=== PATIENT | male | born 1970 | race Caucasian/White ===

== ENCOUNTER 2022-03-13 16:50 | Outpatient (CLI) | payer OTHER, SELFPAY ==
[2022-03-13 15:15] LABS: Creatinine Urine 82.6 mg/dL
[2022-03-13 15:19] LABS: Microalbumin Creatinine Ratio 10 mg/g (0-30); Microalbumin Urine 1 mg/dL
[2022-03-13 22:40] LABS: Iron* 49 ug/dL (49-181)
[2022-03-13 22:42] LABS: Albumin* 3.1 g/dL (3.3-5.0)
[2022-03-13 22:43] LABS: Chloride* 109 mmol/L (96-114); Potassium* 3.9 mmol/L (3.6-5.1); Sodium* 141 mmol/L (135-149)
[2022-03-13 22:45] LABS: Carbon Dioxide* 25 mmol/L (20-32); Cholesterol* 93 mg/dL (90-199); Creatinine* 0.9 mg/dL (0.5-1.5); Estimated Glomerular Filt Rate 102 ml/min
[2022-03-13 22:46] LABS: Alanine Aminotransferase* 22 U/L (4-50); Alkaline Phosphatase* 88 U/L (40-150); Aspartate Amino Transferase* 50 U/L (12-35); Blood Urea Nitrogen* 8 mg/dL (7-30); Calcium* 8.6 mg/dL (8.4-10.6); Glucose* 110 mg/dL (60-115); HDL Cholesterol* 35 mg/dL (>=40); LDL Cholesterol Calculated 48 mg/dL (<100); Triglycerides* 52 mg/dL (40-149)
[2022-03-13 23:29] LABS: Vitamin B12* 881 pg/mL (243-894)
== END 2022-03-13 16:51 | disposition home or self-care (01) ==
PROVIDERS: PCP Physician Assistant Medical; Visit Provider Physician Assistant Medical
DX: Z00.00 Encounter for general adult medical examination without abnormal findings (principal); D64.9 Anemia, unspecified; E11.9 Type 2 diabetes mellitus without complications; K76.9 Liver disease, unspecified; R19.7 Diarrhea, unspecified; E78.5 Hyperlipidemia, unspecified
CPT/HCPCS: 80053; 80061; 82043; 82570; 82607; 83540; 84443

== ENCOUNTER 2022-03-15 12:23 | Outpatient (CLI) | payer OTHER, SELFPAY ==
[2022-03-15 22:19] LABS: Iron* 76 ug/dL (49-181)
[2022-03-15 22:28] LABS: Percent Iron Saturation 16 % (20-50); Total Iron Binding Capacity 484 ug/dL (261-462)
[2022-03-15 22:29] LABS: NT Pro B Type NatriureticPept* 270 PG/mL (0-125)
[2022-03-15 22:51] LABS: PSA Screen* 0.64 ng/mL (0.10-4.00)
[2022-03-15 22:58] LABS: HIV 1/2/P24 Combo Screen* Negative (Negative)
[2022-03-15 23:06] LABS: Hepatitis C Virus Antibody* Negative (Negative)
[2022-03-18 09:00] LABS: Folate, Serum 15.9 ng/mL (>=5.9)
== END 2022-03-15 12:24 | disposition home or self-care (01) ==
PROVIDERS: PCP Physician Assistant Medical; Visit Provider Physician Assistant Medical
DX: Z00.00 Encounter for general adult medical examination without abnormal findings; R06.00 Dyspnea, unspecified; D64.9 Anemia, unspecified; I11.0 Hypertensive heart disease with heart failure; Z12.5 Encounter for screening for malignant neoplasm of prostate
CPT/HCPCS: 82746; 83516; 83540; 83550; 83880; 84153; 86703; 86803

== ENCOUNTER 2022-03-17 13:33 | Outpatient (CLI) | payer OTHER, SELFPAY ==
--- NOTE | 2022-03-17 14:00 | CRLHL7_ITS ---
For Patients: As a result of the Century Cures Act, medical imaging exams and procedure reports are released immediately into your electronic medical record. You may view this report before your referring provider. If you have questions, please contact your health care provider. CLINICAL HISTORY: Cirrhosis status post TIPS creation. Now with ascites. TECHNIQUE: Grayscale ultrasound examination of the abdomen and retroperitoneum with 2D and spectral analysis and color Doppler interrogation of the hepatic vessels. COMPARISON: 12/17/2020, 10/05/2020 FINDINGS: Cirrhotic liver morphology. No focal hepatic mass is seen. There is no significant biliary dilatation, and the common bile duct measures 6 mm. Gallbladder contains small stones. A TIPS stent is present within the right lobe. Peak systolic velocities are as follows: main portal vein: 19 cm/s; portal end of TIPS: 32 cm/s; mid TIPS: 42 cm/s; hepatic end of TIPS: 124 cm/s. The hepatic veins and IVC are patent. The hepatic artery is patent with normal waveform. The kidneys are normal in size and echotexture. The right kidney measures 11.6 x 6.9 x 6.6 cm and the left kidney measures 12.9 x 3.9 x 6.4 cm. There is no evidence of hydronephrosis, mass or renal calculi bilaterally. The spleen is enlarged measuring 22 cm. Abdominal aorta is normal in caliber. No significant ascites is present. IMPRESSION: 1. Patent TIPS. Velocity shift between the midportion and hepatic end of TIPS suggestive of a hemodynamically significant stenosis. Diminished velocities within the main portal vein also suggestive of TIPS dysfunction. 2. Cirrhotic liver. 3. No significant ascites is present. Dictated by Forrest Kimball MD @ 03/18/2022 11:30:40 AM (Electronically Signed)
== END 2022-03-17 13:34 | disposition home or self-care (01) ==
LOC: US 13:34
PROVIDERS: PCP Physician Assistant Medical; Visit Provider Physician Assistant Medical
DX: K74.60 Unspecified cirrhosis of liver (principal)
CPT/HCPCS: 76700; 93975

== ENCOUNTER 2022-03-24 12:32 | Outpatient (CLI) | payer OTHER, SELFPAY | END 2022-03-24 12:33 | disposition home or self-care (01) | LOC: RAD 12:33 | PROVIDERS: PCP Physician Assistant Medical; Visit Provider Physician Assistant Medical | DX: R06.00 Dyspnea, unspecified (principal); I51.7 Cardiomegaly; R79.89 Other specified abnormal findings of blood chemistry | CPT/HCPCS: 93306 ==

== ENCOUNTER 2022-06-08 12:31 | Outpatient (CLI) | payer OTHER, SELFPAY | END 2022-06-08 12:32 | disposition home or self-care (01) | LOC: LKVREF 12:32 | PROVIDERS: PCP Physician Assistant Medical; Visit Provider Physician Assistant Medical | DX: I10 Essential (primary) hypertension (principal); D64.9 Anemia, unspecified | CPT/HCPCS: 80053 ==

== ENCOUNTER 2022-11-10 09:59 | Outpatient (CLI) | payer OTHER, SELFPAY | END 2022-11-10 10:00 | disposition home or self-care (01) | LOC: NFLDREF 13:56 | PROVIDERS: PCP Physician Assistant Medical; Referring Provider Physician Assistant Medical; Visit Provider Physician Assistant Medical | DX: E11.9 Type 2 diabetes mellitus without complications (principal); R79.89 Other specified abnormal findings of blood chemistry; D62 Acute posthemorrhagic anemia; D64.9 Anemia, unspecified; E78.5 Hyperlipidemia, unspecified; I10 Essential (primary) hypertension | CPT/HCPCS: 83540; 83550 ==